=== PATIENT | female | born 1940 | race Caucasian/White ===

== ENCOUNTER 2016-08-08 06:15 | Day surgery (SDC) | payer MEDICARE, OTHER ==
[~2016-08-08 06:15] MED LIST: Gatifloxacin 0.5% Ophth Soln 2.5 ML Bot EYERT SCH; Sodium Chloride 0.9% 5 ML Syringe FLUSH PRN; [UNRECOGNIZED DRUG - OTHER] EYERT SCH
[2016-08-08] MEDS: Cyclopentolate 1% Opth Soln 2 ML Bottle EYERT SCH ×3 (06:43→07:26)
[2016-08-08] MEDS: Phenylephrine 10% Ophth Soln 5 ML Bot EYERT SCH ×3 (06:55→07:36)
[2016-08-08] MEDS ORDERED: Lactated Ringers 1,000 ML IV SCH (07:15)
[2016-08-08] MEDS ORDERED: Balanced Salt Solution Ophth Irrig 15 ML Bottle EYERT ONE (08:36)
[2016-08-08] MEDS ORDERED: Water For Irrigation,Sterile 1,500 ML Container IRR ONE (08:36)
[2016-08-08] MEDS ORDERED: Carbachol 0.01% Intraocular 1.5 ML Vial EYERT ONE (08:37)
[2016-08-08] MEDS ORDERED: EPINEPHrine 1:1000 1 MG/ML SDV ONE (08:37)
[2016-08-08] MEDS ORDERED: Balanced Salt Solution Plus Ophth Irrig 500 ML Bottle IOCULAR ONE (08:37)
[2016-08-08] MEDS ORDERED: Tetracaine 0.5% 2 ML Bottle EYEBOTH ONE (08:37)
[2016-08-08] MEDS ORDERED: Dexamethasone/Neomycin/Polymyxin B Ophth Oint 3.5 GM Tube EYERT ONE (08:38)
[2016-08-08] MEDS ORDERED: Lidocaine 1% 10 ML MDV INJECT ONE (08:39)
[2016-08-08] MEDS ORDERED: Hyaluronate Sodium 1% 0.85 ML Syringe IOCULAR ONE (08:39)
[2016-08-08] MEDS ORDERED: Lidocaine 2% with EPINEPHrine 1:100,000 20 ML MDV INJECT ONE (08:39)
[2016-08-08 09:00] VITALS: BP 129/60
--- NOTE | 2016-08-08 09:39 | PROC ---
DATE OF PROCEDURE: PHYSICIAN: Danilo Gr MD PRE-PROCEDURE DIAGNOSIS: Cataract, right eye. POST-PROCEDURE DIAGNOSIS: Cataract, right eye. PROCEDURE PERFORMED: Phacoemulsification with posterior chamber lens insertion, right eye. FINDINGS: The patient was taken to the operating room where appropriate anesthesia, sedation and monitoring were provided. A retrobulbar block was given on the right side. The eye was massaged and was found to be appropriately soft. The eye and eyelids were then prepped and draped in the usual sterile manner. A lid speculum was placed. A micro sharp blade was used to enter the anterior chamber inside the limbus superior-temporally. Xylocaine was irrigated into the eye at this site. Healon was irrigated into the eye through this site. Then using a 2.85 mm corneal blade an entry was made into the anterior chamber just inside the limbus temporally. Healon was again irrigated into the eye. Then using a cystitome, the anterior capsulorrhexis was created. The lens nucleus was hydrodissected using a 27 gauge cannula and balanced salt solution. The phacoemulsification unit was introduced through the temporal site and the Arun spatula through the superior temporal site. In so doing, the lens nucleus was phacoemulsified. The cortical fragments of the lens were removed using the irrigation aspiration unit. The posterior capsule was polished. Healon was irrigated into the eye. The posterior chamber lens was inserted and rotated into position inside the capsular bag. The Healon was irrigated out of the eye. Miostat was irrigated into the eye and the pupil rounded nicely. A single interrupted 10-0 Nylon suture was placed through the temporal corneal incision site. Balanced salt solution was irrigated into the eye. The wound was tested and found to be tight. Maxitrol ointment was placed into the patient's right eye. The eyelids were closed and an eye patch and sales shield were placed. The patient left the operating room in good condition. /[id number]/MODL
== END 2016-08-08 09:07 | disposition home or self-care (01) ==
LOC: KA.SDS 06:15
PROVIDERS: ATTEND Ophthalmology
DX: H26.9 Unspecified cataract (principal); I10 Essential (primary) hypertension; E03.9 Hypothyroidism, unspecified; E78.00 Pure hypercholesterolemia, unspecified; F32.9 Major depressive disorder, single episode, unspecified; K21.9 Gastro-esophageal reflux disease without esophagitis; F41.9 Anxiety disorder, unspecified; E55.9 Vitamin D deficiency, unspecified; Z90.49 Acquired absence of other specified parts of digestive tract; Z98.890 Other specified postprocedural states; Z79.899 Other long term (current) drug therapy
CPT/HCPCS: 00142; 66984; A9270; C1780; J0171; J7120

== ENCOUNTER 2016-10-16 09:46 | Day surgery (SDC) | payer MEDICARE, OTHER ==
[2016-10-16] MEDS ORDERED: Sodium Chloride 0.9% 5 ML Syringe FLUSH PRN (10:00)
[2016-10-16] MEDS ORDERED: Lactated Ringers 1,000 ML IV SCH (10:00)
[2016-10-16] MEDS ORDERED: ceFAZolin 1 GM Vial ONE ×3 (10:45→12:41)
[2016-10-16] MEDS ORDERED: Propofol 200 MG/20 ML SDV ONE (10:46)
[2016-10-16] MEDS ORDERED: Midazolam 1 MG/ML 2 ML SDV ONE (10:46)
[2016-10-16] MEDS ORDERED: fentaNYL 250 MCG/5 ML SDV ONE (10:46)
[2016-10-16] MEDS ORDERED: Bupivacaine 0.5%/EPINEPHrine 1:200,000 30 ML SDV ONE (11:13)
[2016-10-16] MEDS ORDERED: ePHEDrine 50 MG/ML SDV ONE (11:38)
[2016-10-16] MEDS ORDERED: Lactated Ringers 1,000 ML ONE (11:45)
[2016-10-16] MEDS ORDERED: Rocuronium 50 MG/5 ML Vial IV ONE (12:09)
[2016-10-16] MEDS ORDERED: Glycopyrrolate 0.2 MG/ML 5 ML MDV IV ONE (12:09)
[2016-10-16] MEDS ORDERED: Succinylcholine 200 MG/10 ML MDV IV ONE (12:09)
[2016-10-16] MEDS ORDERED: Neostigmine Methylsulfate 10 MG/10 ML MDV IV ONE (12:09)
[2016-10-16] MEDS ORDERED: Propofol 200 MG/20 ML SDV IV ONE (12:09)
[2016-10-16] MEDS ORDERED: ceFAZolin 1 GM Vial IV ONE (12:09)
[2016-10-16] MEDS ORDERED: Ondansetron 4 MG/2 ML SDV IV ONE (12:09)
[2016-10-16] MEDS ORDERED: fentaNYL 250 MCG/5 ML SDV IV ONE (12:09)
[2016-10-16] MEDS ORDERED: ePHEDrine 50 MG/ML SDV IV ONE (12:09)
[2016-10-16] MEDS ORDERED: Midazolam 1 MG/ML 2 ML SDV IV ONE (12:09)
[2016-10-16] MEDS ORDERED: Bupivacaine 0.5%/EPINEPHrine 1:200,000 30 ML SDV INFILT ONE (12:41)
--- NOTE | 2016-10-16 12:58 | PCM.OPNOTE ---
[id number] abdominal hernia extending from an umbilical hernia with mesh Pre Op Diagnosis: Ventral abdominal hernia Post-Op Diagnosis: As above Primary Surgeon: Rick Mcgee Condition: Good Free Text/Narrative:: Preoperative diagnosis: Ventral abdominal hernia extending into an Umbilical Hernis Postoperative diagnosis: As above Procedure performed: Ventral abdominal herniorrhaphy and placement of Marlex mesh Informed consent was obtained from the patient regarding this procedure. All possible complications were thoroughly discussed including the possibility of infection, recurrence, bleeding, pain, and other unknown complications. The patient decided to proceed. She was taken to the operating room and kept in the supine position. A satisfactory general anesthetic was administered by the hand touch up painter JAVY. her abdomen was thoroughly prepped and draped in the usual fashion. A curvilinear incision was made in the supraumbilical area. This incision was deepened through the subcutaneous tissue until we came upon the hernia. The fascia was very delicate and easily opened. The sac was excised and sent away for histology. The bowel could be easily palpated. The edges of the sac was closed with braided 1 nylon sutures. A Marlex mesh was then cut down to size and sutured to the fascia with great 1 nylon sutures as well. The subcutaneous tissues were irrigated. There were approximated with 3-0 Polysorb and the skin was closed using stainless steel clips. Prior to skin closure, a round INDRA drain was placed into the subcutaneous tissue and brought out through the middle of the incision. This was anchored with 3-0 silk sutures. A sterile pressure dressing was then applied. The patient tolerated the entire procedure very well. There were no operative complications. She was returned to the recovery room in a satisfactory condition. Blood loss was negligible. Sponge needle and instrument count were correct.
[2016-10-16 15:18] VITALS: BP 113/61
== END 2016-10-16 16:00 | disposition home or self-care (01) ==
LOC: KA.SDS 09:46
PROVIDERS: ATTEND Family Medicine
DX: K42.9 Umbilical hernia without obstruction or gangrene (principal); E03.9 Hypothyroidism, unspecified; E78.00 Pure hypercholesterolemia, unspecified; Z79.82 Long term (current) use of aspirin; Z79.899 Other long term (current) drug therapy; Z90.49 Acquired absence of other specified parts of digestive tract
CPT/HCPCS: 49585; J0330; J0690; J2250; J2405; J2704; J2710; J3010; J7120; 00750; 88302; C1781; J3490

== ENCOUNTER 2017-04-12 18:35 | Emergency (ER) | payer MEDICARE, OTHER ==
[2017-04-12 18:48] VITALS: BP 142/78
[2017-04-12] MEDS ORDERED: Phenazopyridine 100 MG Tab PO ONE (19:16)
--- NOTE | 2017-04-12 19:16 | EDM.PDOC ---
ED HPI GENERAL MEDICAL PROBLEM - General Chief Complaint: Genitourinary Problem Stated Complaint: BACK AND SIDE PAIN Time Seen by Provider: 04/12/17 19:00 Source of Information: Reports: Patient History Limitations: Reports: No Limitations - History of Present Illness INITIAL COMMENTS - FREE TEXT/NARRATIVE: 76 YO WF presents to ER complaining of right flank pain which began today around 3pm today. Pt reports dull ache on right side of her back with some urinary frequency and urgency. Pt denies any dysuria, fever/chills, or vomiting , but she states she felt nauseated today. Pt denies any worsening back pain with movement and patient is able to ambulate without difficulty. Onset: Today Onset Date: 04/12/17 Onset Time: 15:00 Duration: Day(s): (1) Location: Reports: Back Quality: Reports: Ache Severity: Mild Improves with: Reports: None Worsens with: Reports: None Associated Symptoms: Reports: No Other Symptoms, Nausea/Vomiting. 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 Right Back Pain Score (Numeric/FACES): 6 - Related Data Allergies Allergy/AdvReac Type Severity Reaction Status Date / Time No Known Drug Allergies Allergy NKDA Verified 10/16/16 10:13 Home Meds: Home Meds Cholecalciferol (Vitamin D3) [Vitamin D3] 2,000 unit PO DAILY 08/28/14 [History] Escitalopram Oxalate [Lexapro] 20 mg PO DAILY 08/28/14 [History] Multivitamin with Minerals [Multiple Vitamin] 1 tab PO DAILY 08/28/14 [History] atorvaSTATin [Lipitor] 20 mg PO DAILY@1600 01/21/16 [History] Aspirin [Halfprin] 81 mg PO WITHBREAKFAST #90 tab.ec 02/15/16 [Rx] Levothyroxine [Synthroid] 100 mcg PO ACBREAKFAST #30 tablet 02/15/16 [Rx] Lisinopril 10 mg PO DAILY #30 tablet 02/15/16 [Rx] ALPRAZolam [Alprazolam] 0.25 mg PO Q6H PRN 03/11/16 [History] Pantoprazole [ProTONIX] 40 mg PO DAILY 03/11/16 [History] Acetaminophen [Tylenol] 650 mg PO QID PRN 04/06/16 [History] Cephalexin [Keflex] 500 mg PO Q6HR #40 cap 04/12/17 [Rx] Cranberry Conc/Ascorbic Acid [Cranberry Concentrate Softgel] 1 each PO DAILY 02/18 [History] Phenazopyridine [Pyridium] 100 mg PO TID #6 tablet 04/12/17 [Rx] Past Medical History HEENT History: Reports: Cataract, Impaired Vision Cardiovascular History: Reports: Blood Clots/VTE/DVT, High Cholesterol, Hypertension Respiratory History: Reports: PE Gastrointestinal History: Reports: GERD Genitourinary History: Reports: Pyelonephritis 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: Musculoskeletal History: Reports: Arthritis, Fracture, Other (See Below) Other Musculoskeletal History: Pelvic fracture 01/17 Psychiatric History: Reports: Anxiety Endocrine/Metabolic History: Reports: Hypoparathyroidism, Obesity/BMI 30+ Hematologic History: Reports: Blood Transfusion(s) - Infectious Disease History Infectious Disease History: Reports: None - Past Surgical History Head Surgeries/Procedures: Reports: None HEENT Surgical History: Reports: Cataract Surgery Cardiovascular Surgical History: Reports: None Respiratory Surgical History: Reports: None GI Surgical History: Reports: Cholecystectomy, Colonoscopy Female Surgical History: Reports: None Endocrine Surgical History: Reports: None Musculoskeletal Surgical History: Reports: Hip Replacement, Knee Replacement, Other (See Below) Other Musculoskeletal Surgeries/Procedures:: left total hip replacement 2002, right knee replacement 2010 Social & Family History - Family History Family Medical History: Noncontributory HEENT: Reports: None Cardiac: Reports: None Respiratory: Reports: None GI: Reports: None : Reports: None OBGYN: Reports: None Musculoskeletal: Reports: None Neurological: Reports: None Psychiatric: Reports: None Endocrine/Metabolic: Reports: None Hematologic: Reports: None Immunologic: Reports: None Oncologic: Reports: Colon - Tobacco Use Smoking Status *Q: Never Smoker Second Hand Smoke Exposure: No - Caffeine Use Caffeine Use: Reports: Coffee, Soda - Alcohol Use Days Per Week of Alcohol Use: 0 - Recreational Drug Use Recreational Drug Use: No ED ROS GENERAL - Review of Systems Review Of Systems: See Below Constitutional: Reports: No Symptoms HEENT: Reports: No Symptoms Respiratory: Reports: No Symptoms Cardiovascular: Reports: No Symptoms Endocrine: Reports: No Symptoms GI/Abdominal: Reports: Nausea. Denies: Abdominal Pain, Vomiting : Reports: Flank Pain, Frequency, Urgency Musculoskeletal: Reports: No Symptoms Skin: Reports: No Symptoms Neurological: Reports: No Symptoms Psychiatric: Reports: No Symptoms Hematologic/Lymphatic: Reports: No Symptoms Immunologic: Reports: No Symptoms ED EXAM, RENAL/ - Physical Exam Exam: See Below Exam Limited By: No Limitations General Appearance: Alert, WD/WN, No Apparent Distress Nose: Normal Inspection, Normal Mucosa, No Blood Throat/Mouth: Normal Inspection, Normal Lips, Normal Teeth, Normal Gums, Normal Oropharynx, Normal Voice, No Airway Compromise Head: Atraumatic, Normocephalic Neck: Normal Inspection, Supple, Non-Tender, Full Range of Motion Respiratory/Chest: No Respiratory Distress, Lungs Clear, Normal Breath Sounds, No Accessory Muscle Use, Chest Non-Tender Cardiovascular: Normal Peripheral Pulses, Regular Rate, Rhythm, No Edema, No Gallop, No JVD, No Murmur, No Rub GI/Abdominal: Normal Bowel Sounds, Soft, Non-Tender, No Organomegaly, No Distention, No Abnormal Bruit, No Mass Back Exam: Normal Inspection, Full Range of Motion, NT Extremities: Normal Inspection, Normal Range of Motion, Non-Tender, Normal Capillary Refill, No Pedal Edema Neurological: Alert, Oriented, CN II-XII Intact, Normal Cognition, Normal Gait, Normal Reflexes, No Motor/Sensory Deficits Psychiatric: Normal Affect, Normal Mood Skin Exam: Warm, Dry, Intact, Normal Color, No Rash Lymphatic: No Adenopathy Course - Vital Signs Last Recorded V/S: Last Vital Signs Temp 36.5 C 04/12/17 18:43 Pulse 97 04/12/17 18:43 Resp 20 04/12/17 18:43 BP 142/78 H 04/12/17 18:43 Pulse Ox 94 L 04/12/17 18:43 - Orders/Labs/Meds Labs: Laboratory Tests 04/12/17 Range/Units 18:35 Specimen Type Urinvoid Urine Color Yellow (YELLOW) Urine Appearance Slightly cloudy H (CLEAR) Urine pH 6.0 (5.0-9.0) Ur Specific [place] 1.010 (1.005-1.030) Urine Protein Negative (NEGATIVE) mg/dL Urine Glucose (UA) Negative (NEGATIVE) mg/dL Urine Ketones Negative (NEGATIVE) mg/dL Urine Occult Blood Moderate H (NEGATIVE) Urine Nitrite Negative (NEGATIVE) Urine Bilirubin Negative (NEGATIVE) Urine Urobilinogen 0.2 (0.2-1.0) E.U./dL Ur Leukocyte Esterase Moderate H (NEGATIVE) Urine RBC 5-10 H /HPF Urine WBC 30-40 H /HPF Ur Epithelial Cells Few /LPF Urine Bacteria Few (NONE TO FEW) /HPF Meds: Medications Discontinued Medications Generic Name Dose Route Start Last Admin Trade Name Freq PRN Reason Stop Dose Admin Ceftriaxone Sodium 1 gm 04/12/17 19:17 Rocephin IM 04/12/17 19:18 ONETIME ONE Phenazopyridine HCl 100 mg 04/12/17 19:16 Pyridium PO 04/12/17 19:17 ONETIME ONE Departure - Departure Time of Disposition: 19:28 Disposition: Home, Self-Care 01 Condition: Good Clinical Impression: UTI, Urinary tract infectious disease UTI (urinary tract infection) Qualifiers: Urinary tract infection type: site unspecified Hematuria presence: without hematuria Qualified Code(s): N39.0 - Urinary tract infection, site not specified - Discharge Information Prescriptions: Cephalexin [Keflex] 500 mg PO Q6HR #40 cap Phenazopyridine [Pyridium] 100 mg PO TID #6 tablet Instructions: Urinary Tract Infection, Adult, [id number], Back Pain, Adult, [id number] Referrals: Rick Mcgee MD [Primary Care Provider] - Forms: ED Department Discharge - Assessment/Plan Assessment:: 1. right flank pain 2. urinary tract infection Plan: 1. discharge home 2. keflex 500mg PO Q6 x 10 days 3. pyridium for pain 4. return to ER for worsening symptoms- fever, vomiting, confusion or worsening pain 5. follow up in clinic for recheck next 48 hours
[2017-04-12] MEDS ORDERED: cefTRIAXone 1 GM Vial IM ONE (19:17)
[2017-04-12] MEDS ORDERED: Lidocaine 1% 20 ML MDV ONE (19:21)
== END 2017-04-12 20:00 | disposition home or self-care (01) ==
LOC: KA.ED 18:35
DX: N39.0 Urinary tract infection, site not specified (principal); I10 Essential (primary) hypertension; E78.00 Pure hypercholesterolemia, unspecified; K21.9 Gastro-esophageal reflux disease without esophagitis; F41.9 Anxiety disorder, unspecified; Z79.82 Long term (current) use of aspirin; Z79.899 Other long term (current) drug therapy
CPT/HCPCS: 81001; 96372; 99284; A9270; J0696

== ENCOUNTER 2017-04-12 23:12 | Inpatient (IN) | payer MEDICARE, OTHER ==
[2017-04-12] MEDS ORDERED: Ondansetron 4 MG/2 ML SDV IVPUSH ONE (23:34)
[2017-04-12] MEDS ORDERED: Sodium Chloride 0.9% 1,000 ML IV ONE (23:34)
[2017-04-12] MEDS ORDERED: Ondansetron 4 MG/2 ML SDV ONE (23:36)
--- NOTE | 2017-04-12 23:41 | EDM.PDOC ---
ED HPI GENERAL MEDICAL PROBLEM - General Chief Complaint: Genitourinary Problem Stated Complaint: NAUSEA, WEAKNESS Time Seen by Provider: 04/12/17 23:25 Source of Information: Reports: Patient History Limitations: Reports: No Limitations - History of Present Illness INITIAL COMMENTS - FREE TEXT/NARRATIVE: 76 YO WF presents to ER by EMS with intractable vomiting. Pt was seen in ER earlier tonight with right flank pain and urinary urgency. Pt at that time complained of nausea but tolerated PO fluids in ER and was discharged with UTI after receiving rocephin for infection. Pt went home and began vomiting prompting EMS transfer. Pt denies chest pain, shortness of breath or abdominal pain. Pt states she still feels nauseated. Onset: Today Onset Date: 04/12/17 Onset Time: 15:00 Duration: Day(s): (1) Severity: Moderate Improves with: Reports: None Worsens with: Reports: None Associated Symptoms: Reports: No Other Symptoms, Loss of Appetite, Nausea/ Vomiting, Weakness. Denies: Chest Pain, Diaphoresis, Fever/Chills, Shortness of Breath, Syncope - Related Data Allergies Allergy/AdvReac Type Severity Reaction Status Date / Time No Known Drug Allergies Allergy NKDA Verified 04/12/17 23:59 Home Meds: Home Meds Cholecalciferol (Vitamin D3) [Vitamin D3] 2,000 unit PO DAILY 08/28/14 [History] Escitalopram Oxalate [Lexapro] 20 mg PO DAILY 08/28/14 [History] Multivitamin with Minerals [Multiple Vitamin] 1 tab PO DAILY 08/28/14 [History] atorvaSTATin [Lipitor] 20 mg PO DAILY@1600 01/21/16 [History] Aspirin [Halfprin] 81 mg PO WITHBREAKFAST #90 tab.ec 02/15/16 [Rx] Levothyroxine [Synthroid] 100 mcg PO ACBREAKFAST #30 tablet 02/15/16 [Rx] Lisinopril 10 mg PO DAILY #30 tablet 02/15/16 [Rx] ALPRAZolam [Alprazolam] 0.25 mg PO Q6H PRN 03/11/16 [History] Pantoprazole [ProTONIX] 40 mg PO DAILY 03/11/16 [History] Acetaminophen [Tylenol] 650 mg PO QID PRN 04/06/16 [History] Cephalexin [Keflex] 500 mg PO Q6HR #40 cap 04/12/17 [Rx] Cranberry Conc/Ascorbic Acid [Cranberry Concentrate Softgel] 1 each PO DAILY 02/18 [History] Phenazopyridine [Pyridium] 100 mg PO TID #6 tablet 04/12/17 [Rx] Past Medical History HEENT History: Reports: Cataract, Impaired Vision Cardiovascular History: Reports: Blood Clots/VTE/DVT, High Cholesterol, Hypertension Respiratory History: Reports: PE Gastrointestinal History: Reports: GERD Genitourinary History: Reports: Pyelonephritis 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: Musculoskeletal History: Reports: Arthritis, Fracture, Other (See Below) Other Musculoskeletal History: Pelvic fracture 01/17 Psychiatric History: Reports: Anxiety Endocrine/Metabolic History: Reports: Hypoparathyroidism, Obesity/BMI 30+ Hematologic History: Reports: Blood Transfusion(s) - Infectious Disease History Infectious Disease History: Reports: None - Past Surgical History Head Surgeries/Procedures: Reports: None HEENT Surgical History: Reports: Cataract Surgery Cardiovascular Surgical History: Reports: None Respiratory Surgical History: Reports: None GI Surgical History: Reports: Cholecystectomy, Colonoscopy Female Surgical History: Reports: None Endocrine Surgical History: Reports: None Musculoskeletal Surgical History: Reports: Hip Replacement, Knee Replacement, Other (See Below) Other Musculoskeletal Surgeries/Procedures:: left total hip replacement 2002, right knee replacement 2010 Social & Family History - Family History Family Medical History: Noncontributory HEENT: Reports: None Cardiac: Reports: None Respiratory: Reports: None GI: Reports: None : Reports: None OBGYN: Reports: None Musculoskeletal: Reports: None Neurological: Reports: None Psychiatric: Reports: None Endocrine/Metabolic: Reports: None Hematologic: Reports: None Immunologic: Reports: None Oncologic: Reports: Colon - Tobacco Use Smoking Status *Q: Never Smoker Second Hand Smoke Exposure: No - Caffeine Use Caffeine Use: Reports: Coffee, Soda - Alcohol Use Days Per Week of Alcohol Use: 0 - Recreational Drug Use Recreational Drug Use: No ED ROS GENERAL - Review of Systems Review Of Systems: See Below Constitutional: Reports: No Symptoms HEENT: Reports: No Symptoms Respiratory: Reports: No Symptoms Cardiovascular: Reports: No Symptoms Endocrine: Reports: No Symptoms GI/Abdominal: Reports: Nausea, Vomiting. Denies: Abdominal Pain, Black Stool, Bloody Stool, Constipation, Diarrhea, Distension, Hematemesis, Hematochezia : Reports: Frequency, Urgency Musculoskeletal: Reports: Back Pain Skin: Reports: No Symptoms Neurological: Reports: No Symptoms Psychiatric: Reports: No Symptoms Hematologic/Lymphatic: Reports: No Symptoms Immunologic: Reports: No Symptoms ED EXAM, RENAL/ - Physical Exam Exam: See Below Exam Limited By: No Limitations General Appearance: Alert, WD/WN, No Apparent Distress Throat/Mouth: Normal Inspection, Normal Lips, Normal Teeth, Normal Gums, Normal Oropharynx, Normal Voice, No Airway Compromise Head: Atraumatic, Normocephalic Neck: Normal Inspection, Supple, Non-Tender, Full Range of Motion Respiratory/Chest: No Respiratory Distress, Lungs Clear, Normal Breath Sounds, No Accessory Muscle Use, Chest Non-Tender Cardiovascular: Normal Peripheral Pulses, Regular Rate, Rhythm, No Edema, No Gallop, No JVD, No Murmur, No Rub GI/Abdominal: Normal Bowel Sounds, Soft, Non-Tender, No Organomegaly, No Distention, No Abnormal Bruit, No Mass Back Exam: CVA Tenderness (R) Extremities: Normal Inspection, Normal Range of Motion, Non-Tender, Normal Capillary Refill, No Pedal Edema Neurological: Alert, Oriented, CN II-XII Intact, Normal Cognition, Normal Gait, Normal Reflexes, No Motor/Sensory Deficits Psychiatric: Normal Affect, Normal Mood Skin Exam: Warm, Dry, Intact, Normal Color, No Rash Lymphatic: No Adenopathy Course - Vital Signs Last Recorded V/S: Last Vital Signs Temp 36.4 C 04/12/17 23:30 Pulse 74 04/12/17 23:30 Resp 18 04/12/17 23:30 BP 128/61 04/12/17 23:30 Pulse Ox 93 L 04/12/17 23:30 - Orders/Labs/Meds Orders: Active Orders 24 hr Category Date Time Status CULTURE URINE [RM] Stat Lab 04/12/17 23:34 Uncollected Metoclopramide [Reglan] Med 04/13/17 00:02 Once 10 mg IVPUSH ONETIME ONE Sodium Chloride 0.9% @ 999 MLS/HR (1000ml) Med 04/12/17 23:34 Ordered Sodium Chloride 0.9% [Normal Saline] 1,000 ml IV .BOLUS Medication Orders Sodium Chloride (Normal Saline) 1,000 mls @ 999 mls/hr IV .BOLUS ONE Stop: 04/13/17 00:34 Last Admin: 04/12/17 23:30 Dose: 999 mls/hr Labs: Laboratory Tests 04/12/17 04/12/17 Range/Units 23:34 23:34 WBC 18.7 H (5.0-10.0) 10^3/uL RBC 4.44 (3.80-5.50) 10^6/uL Hgb 12.7 (12.0-16.0) g/dL Hct 39.3 (37.0-47.0) % MCV 88.6 (82.0-92.0) fL MCH 28.7 (27.0-31.0) pg MCHC 32.4 (32.0-36.0) g/dL RDW 13.0 (11.5-14.5) % Plt Count 260 (150-300) 10^3/uL MPV 8.3 (7.4-10.4) fL Neut % (Auto) 83.5 H (50.0-70.0) % Lymph % (Auto) 10.6 L (20.0-40.0) % [place] % (Auto) 5.3 (2.0-8.0) % Eos % (Auto) 0.3 L (1.0-3.0) % Baso % (Auto) 0.3 (0.0-1.0) % Neut # (Auto) 15.5 H (2.5-7.0) 10^3/uL Lymph # (Auto) 2.0 (1.0-4.0) 10^3/uL [place] # (Auto) 1.0 H (0.1-0.8) 10^3/uL Eos # (Auto) 0.1 (0.1-0.3) 10^3/uL Baso # (Auto) 0.1 (0.0-0.1) 10^3/uL Sodium 137 (136-145) mmol/L Potassium 4.0 (3.3-5.3) mmol/L Chloride 100 (98-115) mmol/L Carbon Dioxide 26.5 (21.0-32.0) mmol/L BUN 10 (6-25) mg/dL Creatinine 0.90 (0.51-1.17) mg/dL Est Cr Clr Drug Dosing TNP Estimated GFR (MDRD) > 60 mL/min Glucose 203 H (70-110) mg/dL Calcium 9.6 (8.7-10.3) mg/dL Total Bilirubin 0.9 (0.2-1.0) mg/dL AST 21 (15-37) U/L ALT 23 (12-78) U/L Alkaline Phosphatase 76 (46-116) IU/L Total Protein 7.5 (6.4-8.2) g/dL Albumin 3.73 (3.00-4.80) g/dL Lipase 235 (73-393) U/L Meds: Medications Generic Name Dose Route Start Last Admin Trade Name Freq PRN Reason Stop Dose Admin Sodium Chloride 1,000 mls @ 999 mls/hr 04/12/17 23:34 04/12/17 23:30 Normal Saline IV 04/13/17 00:34 999 mls/hr .BOLUS ONE Administration Discontinued Medications Generic Name Dose Route Start Last Admin Trade Name Freq PRN Reason Stop Dose Admin Ondansetron HCl 4 mg 04/12/17 23:34 04/12/17 23:42 Zofran IVPUSH 04/12/17 23:35 4 mg ONETIME ONE Administration Ondansetron HCl Confirm 04/12/17 23:36 04/12/17 23:44 Zofran Administered 04/12/17 23:37 Not Given Dose 4 mg .ROUTE .STK-MED ONE Departure - Departure Time of Disposition: 00:11 Disposition: Admitted As Inpatient 65 Condition: Fair Clinical Impression: Pyelonephritis - Discharge Information Referrals: Rick Mcgee MD [Primary Care Provider] - Forms: ED Department Discharge - My Orders Last 24 Hours: My Active Orders 04/12/17 23:34 CULTURE URINE [RM] Stat Sodium Chloride 0.9% @ 999 MLS/HR (1000ml) Sodium Chloride 0.9% [Normal Saline] 1,000 ml IV .BOLUS 04/13/17 00:02 Metoclopramide [Reglan] 10 mg IVPUSH ONETIME ONE - Assessment/Plan Last 24 Hours: My Active Orders 04/12/17 23:34 CULTURE URINE [RM] Stat Sodium Chloride 0.9% @ 999 MLS/HR (1000ml) Sodium Chloride 0.9% [Normal Saline] 1,000 ml IV .BOLUS 04/13/17 00:02 Metoclopramide [Reglan] 10 mg IVPUSH ONETIME ONE Assessment:: 1. vomiting 2. early pyelonephritis Plan: 1. admit to hospital- pyelonephritis- Maddie Mcgee MD 2. rocephin 1g IV QD 3. zofran 4mg IV Q8 PRN vomiting 4. IVF
[2017-04-12 23:53] LABS: CHLORIDE,CL 100 mmol/L (98-115); SODIUM,NA 137 mmol/L (136-145)
[2017-04-13] MEDS ORDERED: Metoclopramide 10 MG/2 ML SDV IVPUSH ONE ×2 (00:02→04:06)
[2017-04-13] MEDS ORDERED: Sodium Chloride 0.9% 1,000 ML IV SCH (00:15)
[2017-04-13] MEDS ORDERED: Ketorolac 30 MG/ML SDV IVPUSH ONE (00:15)
[2017-04-13] MEDS: Ondansetron 4 MG/2 ML SDV IV PRN ×2 (02:14→17:27)
[2017-04-13] MEDS ORDERED: Pantoprazole 40 MG Vial IVPUSH ONE (04:08)
[2017-04-13] MEDS ORDERED: Sodium Chloride 0.9% 50 ML SDV FLUSH SCH (04:30)
[2017-04-13] MEDS: Iopamidol 612 MG/ML 75 ML Bottle IV ONE ×2 (06:41→07:48)
[2017-04-13 07:38] LABS: CHLORIDE,CL 103 mmol/L (98-115); SODIUM,NA 137 mmol/L (136-145)
[2017-04-13] MEDS ORDERED: GI Cocktail 45 ML BOTTLE PO SCH (09:00)
[2017-04-13] MEDS ORDERED: Acetaminophen 325 MG Tab PO PRN (09:09)
[2017-04-13] MEDS ORDERED: Ketorolac 30 MG/ML SDV IVPUSH PRN ×2 (09:11→10:42)
[2017-04-13] MEDS ORDERED: cefTRIAXone 1 GM in Sodium Chloride 0.9% 50 ML IV SCH (10:00)
--- NOTE | 2017-04-13 12:24 | HP ---
PATIENT PROFILE: The patient is a 76-year-old patient who lives in [place], [place]. HISTORY OF PRESENT ILLNESS: This 76-year-old white female who presented to the emergency room by EMS because of complaints of severe vomiting. The patient was seen in the emergency room earlier last night with right flank and urinary tract urgency. She also complained of some nausea, but did respond to p.o. fluids in the ER and was discharged after having received Rocephin for infection. The patient went home and promptly started vomiting. She denied having any chest pain, shortness of breath, or significant abdominal pain. She still feels nauseated. She was therefore admitted to the hospital after returning to the emergency room for the second time. PAST MEDICAL HISTORY: Head/ENT: Reports cataracts with slight impaired vision. Cardiovascular history: She has history of DVT and blood clots. Currently, she is not on any anticoagulants. Cardiovascular history is also positive for high cholesterol and hypertension. Respiratory system: Patient has had a history of PE. GI history: Reports GERD. Genitourinary system: See present history and possible pyelonephritis. 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 Intact uterus. Musculoskeletal history: Complains of arthritis and old fractured hip. She also had a pelvic fracture on 01/17. Psychiatric history: Reports some anxiety. Endocrine/metabolic history: Reports hypothyroidism, obesity with a BMI of 30+. Hematological history: Reports previous blood transfusions. Infectious disease history: Negative. PAST SURGICAL HISTORY: Includes head and neck surgery: None. Eyes/ENT: Reports cataract surgery. Has a previous history of cholecystectomy, colonoscopy. Has had left total hip replacement in 2002 and right knee replacement in 2010. SOCIAL AND FAMILY HISTORY: Family history is noncontributory. Tobacco use: Patient never smoked before. Exposure to secondhand smoke: Never. Caffeine: Reports coffee and soda. Alcohol: Does not use alcohol. No recreational drug use. REVIEW OF SYSTEMS: CONSTITUTIONAL: No complaints. HEAD/ENT: No complaints. RESPIRATORY: No complaints except for slight wheezing history. Occasional cough but no expectoration. CARDIOVASCULAR: Nil. No complaints of chest pain or dyspnea. ENDOCRINE: No complaints. GI: See present history includes nausea, vomiting, and mild abdominal pain. No diarrhea. No constipation, hematemesis, or hematochezia. MUSCULOSKELETAL: Reports back pain due to arthritis. SKIN: No complaints. NEUROLOGICAL: No complaints. PSYCHIATRIC: No complaints. HEMATOLOGICAL/LYMPHATIC: No complaints. IMMUNOLOGICAL: No complaints. PHYSICAL EXAMINATION: GENERAL: Reveals a very pleasant, elderly patient, in no immediate distress, appears to be slightly pale. VITAL SIGNS: Temperature is 36.4 degrees centigrade, pulse 76, respirations 18, blood pressure is 130/60, oximetry is 93%. HEAD: Negative. EYES: Arcus senilis. EARS, NOSE, AND THROAT: Normal. NECK: Supple. Full range of motion. No midline swellings. Trachea midline. Lymph nodes are not enlarged. LUNGS: A few crackles in the right base and a few rales in the left base also. Couple of wheezes are also heard at the bases. HEART: Regular rhythm. No thrills. No murmurs. BREASTS: Soft without any masses. ABDOMEN: Slightly distended. Distention appears to be mostly gaseous. No abdominal tenderness is noted. No rebound tenderness. Normal bowel sounds. No organomegaly. Previous history of cholecystectomy noted. BACK: Has mild right CVA tenderness. EXTREMITIES: Normal. NEUROLOGIC: No deficit noted. Cranial nerves normal. Peripheral nerves normal. PSYCHIATRIC: Normal. SKIN: Normal. LYMPHATIC: Normal. LABORATORY DATA: The patient's hemoglobin is 11.9, hematocrit is 36.5, white count of 15.8 this morning. Previously, it was 18,000. Electrolytes were normal. BUN and creatinine were normal. Platelet count was 259,000. The patient had a CT scan of the abdomen which reveals no acute problems. 1. "There is infiltration of the peripancreatic fat around the head and uncinate process with mild thickening of the adjacent duodenum." Question pancreatitis. Serum lipase was normal. 2. Diverticulosis. 3. Mild prominence of the interlobular septa in the lung bases with bronchial thickening noted and ground-glass opacities. Trace bilateral pleural effusions. FINAL DIAGNOSES: 1. Possible urinary tract infection. 2. Severe nausea, vomiting, exact etiology is not known. May be due to early pyelonephritis. 3. Mild bases in the lungs. This may be from old scar tissue. I do not think there is anything acute at this time. 4. Status post cholecystectomy. 5. Status post left knee replacement and right knee arthroplasty. 6. Status post colonoscopy. 7. Status post cataract surgery. 8. Past history of pulmonary embolism, deep vein thrombosis, hypercholesteremia, hypertension, arthritis, pelvic fracture, previous history of hypothyroidism, history of obesity, and history of GERD. PLAN: Plan will be to treat her symptomatic with IV fluids and Zofran and antinausea medications. We will also try GI cocktail for her. We will also use PPIs. We will keep a close eye on her. She might need to have an upper GI endoscopy for further delineation of the suspicious finding of the duodenum noted on the CAT scan. /[id number]/MODL
[2017-04-13] MEDS: Albuterol/Ipratropium 3.0-0.5 MG/3 ML Neb Soln NEB SCH ×2 (12:51→20:03)
[2017-04-13] MEDS: Sodium Chloride 0.9% 5 ML Syringe FLUSH PRN (17:28)
[2017-04-13] MEDS ORDERED: cefTRIAXone 1 GM Vial IVPUSH SCH (21:00)
[2017-04-13] MEDS: GI Cocktail 45 ML BOTTLE PO PRN (21:19)
[2017-04-14] MEDS: Albuterol/Ipratropium 3.0-0.5 MG/3 ML Neb Soln NEB SCH ×3 (05:41→21:21)
[2017-04-14] MEDS: Levothyroxine 100 MCG Tab PO SCH (07:41)
[2017-04-14] MEDS: GI Cocktail 45 ML BOTTLE PO PRN (09:45)
[2017-04-14] MEDS: ALPRAZolam 0.25 MG Tab PO PRN ×3 (09:47→21:25)
--- NOTE | 2017-04-14 11:38 | PCM.PN ---
- General Info Date of Service: 04/14/17 Admission Dx/Problem (Free Text): 76 yo pt was admitted to the hospital through ER on 04/13 with complaints of severe vomiting. She had been seen in the ER earlier 04/12 with complaints of right flank and urinary tract urgency, nausea. This responded to PO fluids and she was discharged after IV Rocephin. Pt went home and immediately started vomiting. She was admitted to acute bed with possible UTI, severe nausea and vomiting with question of possible pyelonephritis. CT of abdomen showed fibrotic changes in lung bases with bronchial thickening noted and ground-glass opacities. Trace bilateral pleural effusions. "Infiltration of the peripancreatic fat around the head and uncinate process with mild thickening of the adjacent duodenum" Question early pancreatitis. Serum lipase was normal. She is being treated for pyelonephritis with rocephin. Her WBC was elevated at 15.3 with left shift this morning. This is essentially unchanged from WBC of 15.8 yesterday. She had wheezing yesterday with decreased O2 sats on room air yesterday and was started on O2 at 2 liters, Incentive Spirometry q hr WA and DuoNebs tid. O2 sats are at 91-92% on O2 at 2 liters today. Pt continues with nausea. She had an emesis today and was given a GI cocktail and zofran. She reports whenever she feels anxious she gets nausea and vomits. This has been worsened since her 5 months ago. She was given Xanax. Functional Status: Reports: Pain Controlled (She continues with right flank pain ) - Review of Systems General: Reports: Weakness Pulmonary: Reports: Shortness of Breath, Wheezing Cardiovascular: Reports: No Symptoms Gastrointestinal: Reports: Nausea, Vomiting, Other (pronounced when she is anxious per pt report. No BM for 2 days) Genitourinary: Reports: No Symptoms Musculoskeletal: Reports: Other (right flank pain) Skin: Reports: No Symptoms Neurological: Reports: No Symptoms - Patient Data Vitals - Most Recent: Last Vital Signs Temp 98.3 F 04/14/17 06:35 Pulse 84 04/14/17 06:35 Resp 18 04/14/17 06:35 BP 118/68 04/14/17 06:35 Pulse Ox 91 L 04/14/17 06:35 Weight - Most Recent: 178 lb 7 oz I&O - Last 24 Hours: Intake & Output 04/13/17 04/14/17 04/14/17 22:59 06:59 14:59 Intake Total 540 0 Output Total 240 300 200 Balance 300 -300 -200 Lab Results Last 24 Hours: Laboratory Results - last 24 hr 04/14/17 Range/Units 07:05 WBC 15.3 H (5.0-10.0) 10^3/uL RBC 3.76 L (3.80-5.50) 10^6/uL Hgb 10.8 L (12.0-16.0) g/dL Hct 33.1 L (37.0-47.0) % MCV 88.1 (82.0-92.0) fL MCH 28.7 (27.0-31.0) pg MCHC 32.6 (32.0-36.0) g/dL RDW 12.8 (11.5-14.5) % Plt Count 233 (150-300) 10^3/uL MPV 7.8 (7.4-10.4) fL Neut % (Auto) 75.9 H (50.0-70.0) % Lymph % (Auto) 19.2 L (20.0-40.0) % [place] % (Auto) 3.9 (2.0-8.0) % Eos % (Auto) 0.2 L (1.0-3.0) % Baso % (Auto) 0.8 (0.0-1.0) % Neut # (Auto) 11.7 H (2.5-7.0) 10^3/uL Lymph # (Auto) 2.9 (1.0-4.0) 10^3/uL [place] # (Auto) 0.6 (0.1-0.8) 10^3/uL Eos # (Auto) 0.0 L (0.1-0.3) 10^3/uL Baso # (Auto) 0.1 (0.0-0.1) 10^3/uL Med Orders - Current: Current Medications Acetaminophen (Tylenol) 650 mg PO QID PRN PRN Reason: Pain Last Admin: 04/13/17 17:26 Dose: 650 mg Al Hydroxide/Mg Hydroxide (Gi Cocktail) 45 ml PO TID PRN PRN Reason: Nausea Last Admin: 04/14/17 09:45 Dose: 45 ml Albuterol/Ipratropium (Duoneb 3.0-0.5 Mg/3 Ml) 3 ml NEB Q8HRRT [facility] Last Admin: 04/14/17 05:41 Dose: 3 ml Alprazolam (Xanax) 0.25 mg PO Q6H PRN PRN Reason: Anxiety Last Admin: 04/14/17 09:47 Dose: 0.25 mg Ceftriaxone Sodium (Rocephin) 1 gm IVPUSH Q24H [facility] Last Admin: 04/13/17 20:03 Dose: 1 gm Ketorolac Tromethamine (Toradol) 15 mg IVPUSH Q8H PRN PRN Reason: Pain Stop: 04/18/17 10:43 Last Admin: 04/13/17 21:26 Dose: 15 mg Levothyroxine Sodium (Synthroid) 100 mcg PO ACBREAKFAST [facility] Last Admin: 04/14/17 07:41 Dose: 100 mcg Ondansetron HCl (Zofran) 4 mg IV Q6H PRN PRN Reason: Nausea/Vomiting Last Admin: 04/13/17 17:27 Dose: 4 mg Sodium Chloride (Syrex Flush) 5 ml FLUSH Q8HR PRN PRN Reason: Keep Vein Open Last Admin: 04/13/17 17:28 Dose: 5 ml Sodium Chloride (Normal Saline) 50 ml FLUSH ASDIRECTED [facility] Last Admin: 04/13/17 07:49 Dose: 50 ml Discontinued Medications Al Hydroxide/Mg Hydroxide (Gi Cocktail) 45 ml PO TID [facility] Last Admin: 04/13/17 08:30 Dose: Not Given Sodium Chloride (Normal Saline) 1,000 mls @ 999 mls/hr IV .BOLUS ONE Stop: 04/13/17 00:34 Last Admin: 04/12/17 23:30 Dose: 999 mls/hr Sodium Chloride (Normal Saline) 1,000 mls @ 100 mls/hr IV ASDIRECTED [facility] Last Admin: 04/13/17 00:49 Dose: 100 mls/hr Ceftriaxone Sodium 1 gm/ (Sodium Chloride) 50 mls @ 200 mls/hr IV Q24H [facility] Last Admin: 04/13/17 10:44 Dose: Not Given Iopamidol (Isovue-300 (61%)) 75 ml IV ONETIME ONE Stop: 04/13/17 04:31 Last Admin: 04/13/17 07:48 Dose: 75 ml Ketorolac Tromethamine (Toradol) 30 mg IVPUSH ONETIME ONE Stop: 04/13/17 00:16 Last Admin: 04/13/17 00:21 Dose: 30 mg Ketorolac Tromethamine (Toradol) 30 mg IVPUSH Q8H PRN PRN Reason: Abdominal Pain Stop: 04/18/17 09:12 Metoclopramide HCl (Reglan) 10 mg IVPUSH ONETIME ONE Stop: 04/13/17 00:03 Last Admin: 04/13/17 00:06 Dose: 10 mg Metoclopramide HCl (Reglan) 10 mg IVPUSH ONETIME ONE Stop: 04/13/17 04:07 Last Admin: 04/13/17 04:22 Dose: 10 mg Ondansetron HCl (Zofran) 4 mg IVPUSH ONETIME ONE Stop: 04/12/17 23:35 Last Admin: 04/12/17 23:42 Dose: 4 mg Ondansetron HCl (Zofran) Confirm Administered Dose 4 mg .ROUTE .STK-MED ONE Stop: 04/12/17 23:37 Last Admin: 04/12/17 23:44 Dose: Not Given Pantoprazole Sodium (Protonix Iv) 40 mg IVPUSH ONETIME ONE Stop: 04/13/17 04:09 Last Admin: 04/13/17 04:22 Dose: 40 mg - Exam Quality Assessment: Supplemental Oxygen (O2 Sats 91-92% on O2) General: Alert, Oriented, Cooperative Lungs: Clear to Auscultation, Decreased Breath Sounds, Other (no wheezing or rales/rhonchi today) Cardiovascular: Regular Rate, Regular Rhythm GI/Abdominal Exam: Non-Tender, Other (firm. Vomited this morning) Back Exam: CVA Tenderness (R) Extremities: Normal Inspection (no pedal edema) Skin: Warm, Dry, Intact Psy/Mental Status: Alert, Other (Anxious appearing. Clenching and unclenching hands frequently) - Problem List Review Problem List Initiated/Reviewed/Updated: Yes - Assessment Assessment:: 76 yo pt was admitted to the hospital through ER on 04/13 with complaints of severe vomiting. She had been seen in the ER earlier 04/12 with complaints of right flank and urinary tract urgency, nausea. This responded to PO fluids and she was discharged after IV Rocephin. Pt went home and immediately started vomiting. She was admitted to acute bed with possible UTI, severe nausea and vomiting with question of possible pyelonephritis. CT of abdomen showed fibrotic changes in lung bases with bronchial thickening noted and ground-glass opacities. Trace bilateral pleural effusions. "Infiltration of the peripancreatic fat around the head and uncinate process with mild thickening of the adjacent duodenum" Question early pancreatitis. Serum lipase was normal. She had wheezing yesterday with decreased O2 sats on room air yesterday and was started on O2 at 2 liters, Incentive Spirometry q hr WA and DuoNebs tid. O2 sats are at 91-92% on O2 at 2 liters today. Pt continues with nausea. She had an emesis today and was given a GI cocktail and zofran. She reports whenever she feels anxious she gets nausea and vomits. This has been worsened since her 5 months ago. She was given Xanax. 1. Pyelonephritis: Has been treated with rocephin IV. Leukocytosis essentially unchanged. Continue on IV fluids and antibiotic will be changed to levaquin. 2. Presumptive pneumonia super imposed on COPD. Begin Levaquin at 500 mg IV today, then 250 mg IV daily. CBC tomorrow, CXR tomorrow, Continue DuoNebs tid, IS Q hr WA. Review of CXR 04/10/16 showed hyperaerations consistent with COPD/ emphysema. 2) Mild increased interstitial marking. No focal infiltrate. 3. Nausea: Pt clearly relates this with anxiety. Will continue with Xanax 0.25 mg tid prn as well as zofran. 4. Status post cholecystetomy. 5. Status post Praful TKA 6. Past history of PE, DVT, 7. Past history of Hypertension: BP stable on no antihypertensives. 8. hypothyroidism: Continue levothyroxine, 9. GERD. GI coctail prn after checking with pt re: anxiety - Plan Plan:: .
[2017-04-14] MEDS ORDERED: Levofloxacin/Dextrose 5%-Water 500 MG in Premix Bag 1 BAG IV ONE (11:47)
[2017-04-14] MEDS: Ondansetron 4 MG/2 ML SDV IV PRN (13:32)
[2017-04-14] MEDS: Polyethylene Glycol 3350 Powder 17 GM Packet PO PRN (17:36)
[2017-04-15] MEDS: Albuterol/Ipratropium 3.0-0.5 MG/3 ML Neb Soln NEB SCH ×3 (05:30→20:35)
[2017-04-15] MEDS: Levothyroxine 100 MCG Tab PO SCH (07:37)
[2017-04-15] MEDS: Escitalopram 10 MG Tab PO SCH (09:54)
[2017-04-15] MEDS: Polyethylene Glycol 3350 Powder 17 GM Packet PO PRN (10:25)
[2017-04-15 11:47] LABS: O2 DELIVERY DEVICE NASAL CANNULA
[2017-04-15 11:48] LABS: BASE EXCESS ARTERIAL 5 mmol/L (-2-3); BICARBONATE,ARTERIAL 30.1 mmol/L (22-26); O2 FLOW RATE 1 L/min; O2 SATURATION ARTERIAL 91 % (95-98); PCO2 ARTERIAL 49 mmHG (35-45)
[2017-04-15 11:49] LABS: PO2 ARTERIAL 63 mmHG (80-105)
[2017-04-15] MEDS: Sodium Chloride 0.9% 5 ML Syringe FLUSH PRN ×2 (12:29→20:35)
[2017-04-15] MEDS: Levofloxacin/Dextrose 5%-Water 250 MG in Premix Bag 1 BAG IV SCH (12:29)
--- NOTE | 2017-04-15 13:31 | PCM.PN ---
- General Info Date of Service: 04/15/17 Admission Dx/Problem (Free Text): Brief history: 76 yo pt was admitted to the hospital through ER on 04/13 with complaints of severe vomiting. She had been seen in the ER earlier 04/12 with complaints of right flank and urinary tract urgency, nausea. This responded to PO fluids and she was discharged after IV Rocephin. Pt went home and immediately started vomiting. She was admitted to acute bed with possible UTI, severe nausea and vomiting with question of possible pyelonephritis. CT of abdomen showed fibrotic changes in lung bases with bronchial thickening noted and ground-glass opacities. Trace bilateral pleural effusions. "Infiltration of the peripancreatic fat around the head and uncinate process with mild thickening of the adjacent duodenum" Question early pancreatitis. Serum lipase was normal. 1. Pyelonephritis: She was treated for pyelonephritis with rocephin. Her WBC remained elevated. Antibotic was changed to levaquin yesterday and WBC has dropped to WNL. 2. COPD with superimposed pneumonia: She had wheezing on 04/13/17 with decreased O2 sats on room air. She was started on O2 at 2 liters, Incentive Spirometry q hr WA and DuoNebs tid. O2 has been dropped to 1l and O2 sats have remained 91-92%. 3. Anxiety: Pt continues to complain of nausea that is immediately resolved with Xanax. She has had no further emesis since yesterday morning. Pt reports whenever she feels anxious she gets nausea and vomits. This has been worsened since her 5 months ago. Pt had been on lexapro 20 mg prior to hospital admission. This was not restarted in the hospital. Functional Status: Reports: Pain Controlled - Review of Systems General: Reports: Fever (fever, does have fatigue) HEENT: Reports: No Symptoms Pulmonary: Reports: Other (denies any shortness of breath or coughing today. continues to need O2 to keep sats >90%) Cardiovascular: Reports: No Symptoms Gastrointestinal: Reports: Nausea (reports nausea with anxiety. resolves immediately with Xanax.) Genitourinary: Reports: No Symptoms Musculoskeletal: Reports: Other (reports CVA tenderness has resolved.) Skin: Reports: No Symptoms Neurological: Reports: No Symptoms Psychiatric: Reports: Depression, Anxiety - Patient Data Vitals - Most Recent: Last Vital Signs Temp 98.0 F 04/15/17 06:16 Pulse 91 04/15/17 06:16 Resp 18 04/15/17 06:16 BP 103/61 04/15/17 06:16 Pulse Ox 96 04/15/17 13:16 Weight - Most Recent: 178 lb 7 oz I&O - Last 24 Hours: Intake & Output 04/14/17 04/15/17 04/15/17 22:59 06:59 14:59 Intake Total 240 400 Output Total 600 1000 Balance -360 -600 Lab Results Last 24 Hours: Laboratory Results - last 24 hr 04/15/17 04/15/17 04/15/17 Range/Units 07:18 08:41 11:40 WBC 9.2 (5.0-10.0) 10^3/uL RBC 4.15 (3.80-5.50) 10^6/uL Hgb 12.0 (12.0-16.0) g/dL Hct 36.8 L (37.0-47.0) % MCV 88.8 (82.0-92.0) fL MCH 28.8 (27.0-31.0) pg MCHC 32.5 (32.0-36.0) g/dL RDW 12.8 (11.5-14.5) % Plt Count 220 (150-300) 10^3/uL MPV 8.2 (7.4-10.4) fL Neut % (Auto) 74.9 H (50.0-70.0) % Lymph % (Auto) 16.9 L (20.0-40.0) % [place] % (Auto) 7.1 (2.0-8.0) % Eos % (Auto) 0.8 L (1.0-3.0) % Baso % (Auto) 0.3 (0.0-1.0) % Neut # (Auto) 6.8 (2.5-7.0) 10^3/uL Lymph # (Auto) 1.6 (1.0-4.0) 10^3/uL [place] # (Auto) 0.7 (0.1-0.8) 10^3/uL Eos # (Auto) 0.1 (0.1-0.3) 10^3/uL Baso # (Auto) 0.0 (0.0-0.1) 10^3/uL ABG pH 7.39 (7.35-7.45) ABG pCO2 49 H (35-45) mmHG ABG pO2 63 L* (80-105) mmHG ABG HCO3 30.1 H (22-26) mmol/L ABG Total CO2 32 H (23-27) mmol/L ABG O2 Saturation 91 L (95-98) % ABG Base Excess 5 H (-2-3) mmol/L O2 Delivery Device Nasal cannula Oxygen Flow Rate 1 L/min B-Natriuretic Peptide 633 H (0-100) pg/mL Med Orders - Current: Current Medications Acetaminophen (Tylenol) 650 mg PO QID PRN PRN Reason: Pain Last Admin: 04/13/17 17:26 Dose: 650 mg Al Hydroxide/Mg Hydroxide (Gi Cocktail) 45 ml PO TID PRN PRN Reason: Nausea Last Admin: 04/14/17 09:45 Dose: 45 ml Albuterol/Ipratropium (Duoneb 3.0-0.5 Mg/3 Ml) 3 ml NEB Q8HRRT [facility] Last Admin: 04/15/17 13:13 Dose: 3 ml Alprazolam (Xanax) 0.25 mg PO Q6H PRN PRN Reason: Anxiety Last Admin: 04/14/17 21:25 Dose: 0.25 mg Escitalopram Oxalate (Lexapro) 20 mg PO DAILY [facility] Last Admin: 04/15/17 09:54 Dose: 20 mg Levofloxacin/Dextrose 250 mg/ (Premix) 50 mls @ 50 mls/hr IV Q24H [facility] Last Admin: 04/15/17 12:29 Dose: 50 mls/hr Ketorolac Tromethamine (Toradol) 15 mg IVPUSH Q8H PRN PRN Reason: Pain Stop: 04/18/17 10:43 Last Admin: 04/13/17 21:26 Dose: 15 mg Levothyroxine Sodium (Synthroid) 100 mcg PO ACBREAKFAST [facility] Last Admin: 04/15/17 07:37 Dose: 100 mcg Ondansetron HCl (Zofran) 4 mg IV Q6H PRN PRN Reason: Nausea/Vomiting Last Admin: 04/14/17 13:32 Dose: 4 mg Polyethylene Glycol (Miralax) 17 gm PO DAILY PRN PRN Reason: Constipation Last Admin: 04/15/17 10:25 Dose: 17 gm Sodium Chloride (Syrex Flush) 5 ml FLUSH Q8HR PRN PRN Reason: Keep Vein Open Last Admin: 04/15/17 12:29 Dose: 5 ml Sodium Chloride (Normal Saline) 50 ml FLUSH ASDIRECTED [facility] Last Admin: 04/13/17 07:49 Dose: 50 ml Discontinued Medications Al Hydroxide/Mg Hydroxide (Gi Cocktail) 45 ml PO TID [facility] Last Admin: 04/13/17 08:30 Dose: Not Given Ceftriaxone Sodium (Rocephin) 1 gm IVPUSH Q24H [facility] Last Admin: 04/13/17 20:03 Dose: 1 gm Sodium Chloride (Normal Saline) 1,000 mls @ 999 mls/hr IV .BOLUS ONE Stop: 04/13/17 00:34 Last Admin: 04/12/17 23:30 Dose: 999 mls/hr Sodium Chloride (Normal Saline) 1,000 mls @ 100 mls/hr IV ASDIRECTED [facility] Last Admin: 04/13/17 00:49 Dose: 100 mls/hr Ceftriaxone Sodium 1 gm/ (Sodium Chloride) 50 mls @ 200 mls/hr IV Q24H [facility] Last Admin: 04/13/17 10:44 Dose: Not Given Levofloxacin/Dextrose 500 mg/ (Premix) 100 mls @ 100 mls/hr IV ONETIME ONE Stop: 04/14/17 12:46 Last Admin: 04/14/17 12:48 Dose: 100 mls/hr Iopamidol (Isovue-300 (61%)) 75 ml IV ONETIME ONE Stop: 04/13/17 04:31 Last Admin: 04/13/17 07:48 Dose: 75 ml Ketorolac Tromethamine (Toradol) 30 mg IVPUSH ONETIME ONE Stop: 04/13/17 00:16 Last Admin: 04/13/17 00:21 Dose: 30 mg Ketorolac Tromethamine (Toradol) 30 mg IVPUSH Q8H PRN PRN Reason: Abdominal Pain Stop: 04/18/17 09:12 Metoclopramide HCl (Reglan) 10 mg IVPUSH ONETIME ONE Stop: 04/13/17 00:03 Last Admin: 04/13/17 00:06 Dose: 10 mg Metoclopramide HCl (Reglan) 10 mg IVPUSH ONETIME ONE Stop: 04/13/17 04:07 Last Admin: 04/13/17 04:22 Dose: 10 mg Ondansetron HCl (Zofran) 4 mg IVPUSH ONETIME ONE Stop: 04/12/17 23:35 Last Admin: 04/12/17 23:42 Dose: 4 mg Ondansetron HCl (Zofran) Confirm Administered Dose 4 mg .ROUTE .STK-MED ONE Stop: 04/12/17 23:37 Last Admin: 04/12/17 23:44 Dose: Not Given Pantoprazole Sodium (Protonix Iv) 40 mg IVPUSH ONETIME ONE Stop: 04/13/17 04:09 Last Admin: 04/13/17 04:22 Dose: 40 mg - Exam Quality Assessment: Supplemental Oxygen (1 liter per nc) General: Alert, Oriented, No Acute Distress Neck: Supple Lungs: Rales (rales in right base. diminished sounds throughout. No wheezing.) GI/Abdominal Exam: Soft, Non-Tender Back Exam: Other (No CVA tenderness today) Extremities: Other (trace pedal edema praful.) Skin: Warm, Dry, Intact Neurological: No New Focal Deficit Psy/Mental Status: Alert, Other (subdued affect. Anxious with conversation re: use of Xanax and restarting lexapro in an attempt to decrease Xanax need.) - Problem List Review Problem List Initiated/Reviewed/Updated: Yes - My Orders Last 24 Hours: My Active Orders 04/14/17 16:38 Polyethylene Glycol 3350 [MiraLAX] 17 gm PO DAILY PRN 04/15/17 05:00 CXR [Chest 2V] [CR] Routine 04/15/17 09:35 Daily Weight [Height and Weight] [RC] 0700 04/15/17 09:45 Escitalopram [Lexapro] 20 mg PO DAILY 04/15/17 12:00 Levofloxacin/Dextrose 5%-Water [Levaquin in D5W 250 MG/50 ML] 250 mg Premix Bag 1 bag IV Q24H - Assessment Assessment:: Brief history: 76 yo pt was admitted to the hospital through ER on 04/13 with complaints of severe vomiting. She had been seen in the ER earlier 04/12 with complaints of right flank and urinary urgency, nausea. This responded to PO fluids and she was discharged after IV Rocephin. Pt went home and immediately started vomiting. She was admitted to acute bed with possible UTI, severe nausea and vomiting with question of possible pyelonephritis. CT of abdomen showed fibrotic changes in lung bases with bronchial thickening noted and ground-glass opacities. Trace bilateral pleural effusions. "Infiltration of the peripancreatic fat around the head and uncinate process with mild thickening of the adjacent duodenum" Question early pancreatitis. Serum lipase was normal. Pt has CXR 04/10/16 showing hyperaeration consistent with COPD/emphysema. Pt was not aware of any COPD history. She had wheezing on admission with decreased O2 sats on room air was started on O2 at 2 liters, Incentive Spirometry q hr WA and DuoNebs tid. O2 sats are at 91 -92% on O2 on 1 liter O2 today. Pt continues with nausea resolved immediately with Xanax. 1. Pyelonephritis: Improved. No further CVA tenderness after antibiotic changed to Levaquin. WBC WNL today. Continue on IV levaquin. 2. 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 Continue Levaquin 250 mg IV daily. CBC has improved. CXR showing Mild CHF with interstitial edmea and a small right effusion. This could obscure early infiltrates, but no infiltrates are identified on this CXR. BNP was mildly elevated at 633. Will give lasix 40 mg x 1 today. ABGs were obtained due to ongoing low O2 sats. ABGs showing low PO2 with elevated PCO2 and HCO3 showing compensation of COPD. Continue DuoNebs tid, IS qid 3. Nausea: Pt clearly relates this with anxiety. Will resume lexapro 20 mg daily and continue with Xanax 0.25 mg tid prn. 4. Status post cholecystetomy. 5. Status post Praful TKA 6. Past history of PE, DVT, 7. Past history of Hypertension: BP stable on no antihypertensives. 8. Hypothyroidism: Continue levothyroxine, 9. GERD. GI cocktail prn after checking with pt re: anxiety - Plan Plan:: .
[2017-04-15] MEDS ORDERED: Furosemide 40 MG/4 ML VIAL IVPUSH ONE (13:45)
[2017-04-15] MEDS: ALPRAZolam 0.25 MG Tab PO PRN (20:49)
[2017-04-16] MEDS: Albuterol/Ipratropium 3.0-0.5 MG/3 ML Neb Soln NEB SCH ×3 (06:00→20:31)
[2017-04-16] MEDS: Polyethylene Glycol 3350 Powder 17 GM Packet PO SCH (08:38)
[2017-04-16] MEDS: Escitalopram 10 MG Tab PO SCH (08:38)
[2017-04-16] MEDS: Levothyroxine 100 MCG Tab PO SCH (08:38)
[2017-04-16] MEDS: Pantoprazole 40 MG Tab.CR PO SCH (10:39)
[2017-04-16] MEDS: Levofloxacin/Dextrose 5%-Water 250 MG in Premix Bag 1 BAG IV SCH (12:11)
[2017-04-16] MEDS: Sodium Chloride 0.9% 5 ML Syringe FLUSH PRN (12:12)
--- NOTE | 2017-04-16 12:13 | PCM.PN ---
- General Info Date of Service: 04/16/17 Admission Dx/Problem (Free Text): Pyelonephritis Subjective Update: Ms. Portillo reports feeling much better this morning. She has had interval improvement in her breathing and resolution of nausea and flank pain. She ate breakfast this morning without difficulty, but does admit to some heartburn following lunch yesterday for which she usually takes pantoprazole at home. Has been ambulating with her walker without difficulty. No new concerns have arisen. She denies any fever, chills, chest pain, palpitations, shortness of breath, productive cough, nausea, diarrhea, abdominal pain, flank pain, dysuria, hematuria, edema. Nursing reports no concerns. - Patient Data Vitals - Most Recent: Last Vital Signs Temp 36.3 C 04/16/17 06:43 Pulse 83 04/16/17 06:43 Resp 20 04/16/17 06:43 BP 127/82 04/16/17 06:43 Pulse Ox 94 L 04/16/17 09:30 Weight - Most Recent: 79.469 kg I&O - Last 24 Hours: Intake & Output 04/15/17 04/16/17 04/16/17 22:59 06:59 14:59 Intake Total 820 300 Output Total 2600 1000 Balance -1780 -700 Med Orders - Current: Current Medications Acetaminophen (Tylenol) 650 mg PO QID PRN PRN Reason: Pain Last Admin: 04/13/17 17:26 Dose: 650 mg Al Hydroxide/Mg Hydroxide (Gi Cocktail) 45 ml PO TID PRN PRN Reason: Nausea Last Admin: 04/14/17 09:45 Dose: 45 ml Albuterol/Ipratropium (Duoneb 3.0-0.5 Mg/3 Ml) 3 ml NEB Q8HRRT [facility] Last Admin: 04/16/17 06:00 Dose: 3 ml Alprazolam (Xanax) 0.25 mg PO Q6H PRN PRN Reason: Anxiety Last Admin: 04/15/17 20:49 Dose: 0.25 mg Aspirin (Aspirin) 81 mg PO WITHBREAKFAST [facility] Escitalopram Oxalate (Lexapro) 20 mg PO DAILY [facility] Last Admin: 04/16/17 08:38 Dose: 20 mg Levofloxacin/Dextrose 250 mg/ (Premix) 50 mls @ 50 mls/hr IV Q24H [facility] Last Admin: 04/15/17 12:29 Dose: 50 mls/hr Ketorolac Tromethamine (Toradol) 15 mg IVPUSH Q8H PRN PRN Reason: Pain Stop: 04/18/17 10:43 Last Admin: 04/13/17 21:26 Dose: 15 mg Levothyroxine Sodium (Synthroid) 100 mcg PO ACBREAKFAST [facility] Last Admin: 04/16/17 08:38 Dose: 100 mcg Lisinopril (Prinivil) 10 mg PO DAILY [facility] Ondansetron HCl (Zofran) 4 mg IV Q6H PRN PRN Reason: Nausea/Vomiting Last Admin: 04/14/17 13:32 Dose: 4 mg Pantoprazole Sodium (Protonix) 40 mg PO ACBREAKFAST [facility] Last Admin: 04/16/17 10:39 Dose: 40 mg Polyethylene Glycol (Miralax) 17 gm PO DAILY [facility] Last Admin: 04/16/17 08:38 Dose: Not Given Sodium Chloride (Syrex Flush) 5 ml FLUSH Q8HR PRN PRN Reason: Keep Vein Open Last Admin: 04/15/17 20:35 Dose: 5 ml Discontinued Medications Al Hydroxide/Mg Hydroxide (Gi Cocktail) 45 ml PO TID [facility] Last Admin: 04/13/17 08:30 Dose: Not Given Ceftriaxone Sodium (Rocephin) 1 gm IVPUSH Q24H [facility] Last Admin: 04/13/17 20:03 Dose: 1 gm Furosemide (Lasix) 40 mg IVPUSH NOW ONE Stop: 04/15/17 13:46 Last Admin: 04/15/17 14:38 Dose: 40 mg Sodium Chloride (Normal Saline) 1,000 mls @ 999 mls/hr IV .BOLUS ONE Stop: 04/13/17 00:34 Last Admin: 04/12/17 23:30 Dose: 999 mls/hr Sodium Chloride (Normal Saline) 1,000 mls @ 100 mls/hr IV ASDIRECTED [facility] Last Admin: 04/13/17 00:49 Dose: 100 mls/hr Ceftriaxone Sodium 1 gm/ (Sodium Chloride) 50 mls @ 200 mls/hr IV Q24H [facility] Last Admin: 04/13/17 10:44 Dose: Not Given Levofloxacin/Dextrose 500 mg/ (Premix) 100 mls @ 100 mls/hr IV ONETIME ONE Stop: 04/14/17 12:46 Last Admin: 04/14/17 12:48 Dose: 100 mls/hr Iopamidol (Isovue-300 (61%)) 75 ml IV ONETIME ONE Stop: 04/13/17 04:31 Last Admin: 04/13/17 07:48 Dose: 75 ml Ketorolac Tromethamine (Toradol) 30 mg IVPUSH ONETIME ONE Stop: 04/13/17 00:16 Last Admin: 04/13/17 00:21 Dose: 30 mg Ketorolac Tromethamine (Toradol) 30 mg IVPUSH Q8H PRN PRN Reason: Abdominal Pain Stop: 04/18/17 09:12 Metoclopramide HCl (Reglan) 10 mg IVPUSH ONETIME ONE Stop: 04/13/17 00:03 Last Admin: 04/13/17 00:06 Dose: 10 mg Metoclopramide HCl (Reglan) 10 mg IVPUSH ONETIME ONE Stop: 04/13/17 04:07 Last Admin: 04/13/17 04:22 Dose: 10 mg Ondansetron HCl (Zofran) 4 mg IVPUSH ONETIME ONE Stop: 04/12/17 23:35 Last Admin: 04/12/17 23:42 Dose: 4 mg Ondansetron HCl (Zofran) Confirm Administered Dose 4 mg .ROUTE .STK-MED ONE Stop: 04/12/17 23:37 Last Admin: 04/12/17 23:44 Dose: Not Given Pantoprazole Sodium (Protonix Iv) 40 mg IVPUSH ONETIME ONE Stop: 04/13/17 04:09 Last Admin: 04/13/17 04:22 Dose: 40 mg Polyethylene Glycol (Miralax) 17 gm PO DAILY PRN PRN Reason: Constipation Last Admin: 04/15/17 10:25 Dose: 17 gm Sodium Chloride (Normal Saline) 50 ml FLUSH ASDIRECTED [facility] Last Admin: 04/13/17 07:49 Dose: 50 ml - Exam Physical Findings Comments:: GENERAL: Well-appearing elderly white female sitting in bedside chair in no acute distress. HEENT: Normocephalic, atraumatic. Conjunctiva clear. Mucous membranes moist, posterior pharynx unremarkable. NECK: Supple, no masses. CV: Regular rate and rhythm, no murmurs, rubs, or gallops. 2+ radial pulses. PULMONARY: Normal effort, clear to auscultation bilaterally, no wheezes, rales, or rhonchi. ABDOMEN: Positive bowel sounds, soft, nontender, no CVA tenderness. EXTREMITIES: No edema, cyanosis, or clubbing. MUSCULOSKELETAL: Moves all extremities well. NEUROLOGICAL: No obvious deficits. DERMATOLOGIC: No rashes or suspicious lesions in exposed areas. PSYCHIATRIC: Alert, interactive, appropriate affect. - Problem List Review Problem List Initiated/Reviewed/Updated: Yes - My Orders Last 24 Hours: My Active Orders 04/16/17 10:15 Pantoprazole [ProTONIX] 40 mg PO ACBREAKFAST 04/17/17 05:11 BASIC METABOLIC PANEL,BMP [CHEM] AM TSH ULTRASENSITIVE [CHEM] AM 04/17/17 08:00 Aspirin 81 mg PO WITHBREAKFAST 04/17/17 09:00 Lisinopril [Prinivil] 10 mg PO DAILY - Assessment Assessment:: 76yoF with history notable for HTN and anxiety admitted to the hospital through ED on 04/13/17 with complaints of severe vomiting thought to be secondary to pyelonephritis. She had been seen in the ED on 04/12/17 with complaints of urinary urgency, right flank pain, and nausea which responsed to po fluids and she was discharged following IV ceftriaxone. She went home and immediately started vomiting. She returned to the ED and CT abdomen/pelvis showed fibrotic changes in lung bases with bronchial thickening noted and ground-glass opacities , trace bilateral pleural effusions, and infiltration of the peripancreatic fat around the head and uncinate process with mild thickening of the adjacent duodenum. She was admitted for inpatient management. # Pyelonephritis: Urinary symptoms and right CVA tenderness resolved and WBC normalized since switching ceftriaxone to levofloxacin. Urine culture from this admission after initiation of antibiotics (ceftriaxone IV x1 and cephalexin x2 doses) the day prior with growth consistent with contamination. Given clinical improvement despite no growth on urine culture, recommend continuing fluoroquinolone for remainder of 10-14 day course. # Acute hypoxic respiratory failure: Requiring as much as 2L via nasal cannula. Wheezing noted on admission and prior CXR with evidence of possible COPD, though patient denies pulmonary history, and ABG consistent with compensated respiratory acidosis. CXR this admission with evidence of fluid overload, BNP mildly elevated, and resolution of hypoxia and shortness of breath following diuresis of just under 2L with furosemide 40mg given 04/15/17. No prior dx of heart failure or other findings to suggest underlying etiology. Remainder of laboratory work-up negative; last TSH wnl 6mos ago, so will check again tomorrow along with BMP to recheck electrolytes and renal function. Recommend outpatient echo and consideration of spirometry. No evidence of fluid overload on exam today and hypoxia resolved, so will hold off on further diuretics. Continue DuoNebs prn. # Generalized anxiety disorder: Recent worsening since 's 5mos ago. Associated with occasional nausea that responds to alprazolam, which will be continued on a strictly as needed basis in addition to escitalopram. Chronic conditions: # HTN: Well-controlled without medications. Continue holding outpatient lisinopril. # GERD: Complained of some heartburn yesterday after lunch. Restart outpatient pantoprazole. # Hypothyoridism: Last TSH wnl 6mos ago. Recheck as above. Continue levothyroxine. # HLD: Restart atorvastatin and ASA. Hospitalization details: # FEN: No IVF. Electrolytes normal on last check; recheck tomorrow. Regular diet. # PPX: Given plan to discharge tomorrow, will continue with frequent ambulation for DVT ppx. # Code status: Full code. # Disposition: Continue on inpatient unit. Plan to discharge to home tomorrow pending ongoing clinical improvement.
[2017-04-16] MEDS: GI Cocktail 45 ML BOTTLE PO PRN (14:38)
[2017-04-16] MEDS: ALPRAZolam 0.25 MG Tab PO PRN (21:59)
[2017-04-17] MEDS: Albuterol/Ipratropium 3.0-0.5 MG/3 ML Neb Soln NEB SCH (05:45)
[2017-04-17 06:23] VITALS: BP 98/59
[2017-04-17] MEDS: Pantoprazole 40 MG Tab.CR PO SCH (07:42)
[2017-04-17] MEDS: Levothyroxine 100 MCG Tab PO SCH (07:42)
[2017-04-17] MEDS ORDERED: Aspirin 81 MG Tab.Chew PO SCH (08:00)
[2017-04-17] MEDS: Polyethylene Glycol 3350 Powder 17 GM Packet PO SCH (08:24)
[2017-04-17] MEDS: Escitalopram 10 MG Tab PO SCH (08:24)
[2017-04-17] MEDS ORDERED: Lisinopril 10 MG Tab PO SCH (09:00)
--- NOTE | 2017-04-18 08:35 | DISCH ---
FINAL DIAGNOSES: 1. Pyelonephritis, resolving. Continue with Levaquin. 2. Clinical signs of heart failure, low-dose diuretic on discharge. 3. Rule out chronic obstructive pulmonary disease, may need PFTs, outpatient. 4. Generalized anxiety, seems to be improved, recent of . 5. Gastroesophageal reflux disease, worsening, adjusted and reduced caffeine, brought back on PPI. 6. Diverticulosis. 7. Trace bilateral pleural effusions. 8. Possible pancreatitis. 9. Hypothyroidism. HISTORY: This 76-year-old very pleasant female was admitted in acute care four days ago. She came through ambulance department mainly due to severe vomiting. She was treated and released. Appeared to have a urinary tract infection as she did have some right flank pain and some symptoms of UTI; however, she had returned for some vomiting, so she was admitted to acute care. HOSPITAL COURSE: Hospital course went fairly well. She never became hemodynamically unstable, although she did have an ABG which showed some mild acidotic picture, however, it was compensatory as the pH was 7.39, CO2 was high at 49 with a low O2 at 63. This was on 1 L of oxygen. She was started on DuoNeb, aggressive pulmonary toileting with the incentive spirometer, and given some Lasix diuretic therapy which did improve. She did have 6-pound weight loss on diuretic therapy. She states she does not have a history of heart failure or COPD as she is aware of. She was treated with pyelonephritis with Levaquin IV. She will continue with oral outpatient. She had a white count of 15.8 on admission. Neutrophils percentages were about 90, they were shifting right on discharge. Normal white count on discharge. Neutrophils shifting down to 74%. She had no CVA tenderness. No nausea, vomiting, or diarrhea. She was tolerating an appetite. She was afebrile. On discharge, heart rate was in the 90s. TSH level was drawn, it was 0.1. Adjustments on home medications were made. Levothyroxine reduced to 88 mcg. DIAGNOSTICS: Abdominal CT on admission showed probable early pancreatitis, however, lipase was normal. It showed edema involving the head and uncinate process of the pancreas. Also, she had moderate proximal small-bowel distention. Surgical removal of gallbladder was noted. Liver, spleen, kidneys, and adrenals were normal along with no mass or adenopathy in her pelvic. Chest x-ray showed mild CHF with interstitial edema with small right pleural effusion, however, no focal infiltrates. Electrolytes on discharge, sodium 140, potassium 4.3, BUN 13, creatinine 1.08, glucose 117. BNP 633. TSH 0.110, which is low. PHYSICAL EXAM ON DISCHARGE: VITAL SIGNS: Systolic blood pressure around 100, temperature 98.8, heart rate 94, O2 sats 92%, respiratory rate 18. LUNGS: Clear on auscultation. EXTREMITIES: She had very little if any edema of lower extremities. BACK: Negative CVA tenderness. MICROBIOLOGY REPORT: Urine cultures suggestive of contamination. DISCHARGE MEDICATIONS: 1. Levothyroxine 88 mcg p.o. daily (decreased from 100). 2. Lasix 10 mg p.o. daily x2 weeks (newly added). 3. DuoNeb every 8 hours as needed (newly added). 4. Levaquin 250 mg p.o. daily times 8 days (newly added). 5. The patient to restart her PPI therapy. DISPOSITION: The patient will be discharged from the hospital, self-snf, IV will be discontinued. She will follow up with me in [facility] in 3 days. FOLLOW-UP RECOMMENDATIONS: Echocardiogram, pulmonary function test, bringing her incentive spirometer. Repeat TSH level 60 days. Weight on discharge 171 pounds, 4 ounces. She is to report any vomiting, lower urinary tract infection symptoms, any worsening shortness of breath. MEDICAL DECISION MAKIN minutes was spent on this discharge planning and process. /[id number]/MODL
== END 2017-04-17 10:10 | disposition home or self-care (01) | DRG 689 ==
LOC: KA.ED 23:12 → KA.MS 04-13 00:07
PROVIDERS: ADMIT Physician Assistant Medical; ATTEND Family Medicine
DX: N12 Tubulo-interstitial nephritis, not specified as acute or chronic (principal); J96.01 Acute respiratory failure with hypoxia; N39.0 Urinary tract infection, site not specified; J18.9 Pneumonia, unspecified organism; J44.0 Chronic obstructive pulmonary disease with (acute) lower respiratory infection; R11.2 Nausea with vomiting, unspecified; E78.5 Hyperlipidemia, unspecified; I10 Essential (primary) hypertension; E03.9 Hypothyroidism, unspecified; K21.9 Gastro-esophageal reflux disease without esophagitis; F41.9 Anxiety disorder, unspecified; Z79.899 Other long term (current) drug therapy; Z86.718 Personal history of other venous thrombosis and embolism; Z86.711 Personal history of pulmonary embolism
CPT/HCPCS: 80053; 83690; 85025; 96374; 96375; 99285 ×2; J2405; J2765; J7030; 36415; 36600; 71020; 74177; 80048; 81001; 82803; 82962; 83880; 84443; 87086; 94640; 96372; 99284; A9270-GY; C9113; J0696; J1885; J1940; J1956; Q9967

== ENCOUNTER 2022-06-23 19:57 | Emergency (ER) | payer MEDICARE, OTHER ==
[2022-06-23 20:13] VITALS: BP 150/84; PULSE 97
[2022-06-23] MEDS: Ketorolac 30 MG/ML SDV IM ONE (20:37)
== END 2022-06-23 21:30 | disposition home or self-care (01) ==
LOC: KA.ED 19:57 → MERGE 19:57 → KA.ED 21:30
DX: S22.41XA Multiple fractures of ribs, right side, initial encounter for closed fracture (principal); W01.0XXA Fall on same level from slipping, tripping and stumbling without subsequent striking against object, initial encounter; Y92.009 Unspecified place in unspecified non-institutional (private) residence as the place of occurrence of the external cause
CPT/HCPCS: 71111-RT; 96372; 99283; J1885

== ENCOUNTER 2024-03-24 10:05 | Emergency (ER) | payer MEDICARE, OTHER ==
[2024-03-24] MEDS: Sodium Chloride 0.9% 10 ML Syringe FLUSH PRN (10:40)
[2024-03-24 10:43] LABS: EOSINOPHILS ABSOLUTE AUTO 0.01 10^3/uL (0.10-0.30); EOSINOPHILS PERCENT AUTO 0.1 % (1.0-3.0); HEMATOCRIT 39.5 % (37.0-47.0); HEMOGLOBIN 12.8 g/dL (12.0-16.0); IMMATURE GRAN ABSOLUTE AUTO 0.03 10^3/uL (0.00-0.50); IMMATURE GRAN PERCENT AUTO 0.2 % (0.0-5.0); LYMPHOCYTES ABSOLUTE AUTO 3.18 10^3/uL (1.00-4.00); MEAN CORPUSCULAR HEMOGLOBIN 29.2 pg (27.0-31.0); MEAN CORPUSCULAR HGB CONC 32.4 g/dL (32.0-36.0); MEAN PLATELET VOLUME 9.6 fL (7.4-10.4); MONOCYTES ABSOLUTE AUTO 1.66 10^3/uL (0.10-0.80); NEUTROPHILS ABSOLUTE AUTO 8.96 10^3/uL (2.50-7.00); NEUTROPHILS PERCENT AUTO 64.7 % (50.0-70.0); PLATELET COUNT,PLT 316 10^3/uL (150-400); RED BLOOD CELL COUNT 4.39 10^6/uL (3.80-5.50); RED CELL DISTRIBUTION WIDTH 13.3 % (11.5-14.5); WHITE BLOOD CELL COUNT,WBC 13.84 10^3/uL (5.00-10.00)
[2024-03-24] MEDS: Albuterol 0.083% 2.5 MG/3 ML Neb Soln NEB ONE (10:51)
[2024-03-24 10:53] VITALS: BP 146/80; PULSE 105
[2024-03-24 11:05] LABS: ANION GAP 12.9 mmol/L (5-15); CALCIUM 8.9 mg/dL (8.7-10.3); CARBON DIOXIDE,CO2 26.8 mmol/L (21.0-32.0); CREATININE 0.94 mg/dL (0.51-1.17); EST CRCL DRUG DOSING (CG) 35.24 mL/min; POTASSIUM,K 3.7 mmol/L (3.5-5.1)
[2024-03-24] MEDS ORDERED: Sodium Chloride 0.9% 50 ML IV SCH (11:45)
[2024-03-24] MEDS: Iopamidol 755 Mg/ML 100 ML Bottle IV ONE (12:05)
[2024-03-24] MEDS: Sodium Chloride 0.9% 100 ML IV SCH (12:06)
== END 2024-03-24 14:10 | disposition home or self-care (01) ==
LOC: KA.ED 10:05
DX: J06.9 Acute upper respiratory infection, unspecified (principal); J45.20 Mild intermittent asthma, uncomplicated; R79.1 Abnormal coagulation profile; D72.828 Other elevated white blood cell count; E78.00 Pure hypercholesterolemia, unspecified; I10 Essential (primary) hypertension; K21.9 Gastro-esophageal reflux disease without esophagitis; M19.90 Unspecified osteoarthritis, unspecified site; E03.9 Hypothyroidism, unspecified; E66.9 Obesity, unspecified; Z79.82 Long term (current) use of aspirin; Z79.899 Other long term (current) drug therapy
CPT/HCPCS: 36415; 71045; 71275; 80048; 83605; 84484; 85025; 85379; 94640; 99285; J3490; Q9967; 93010; 99284; J7613-GY

== ENCOUNTER 2024-05-09 21:20 | Emergency (ER) | payer MEDICARE, OTHER ==
[2024-05-09] MEDS ORDERED: methylPREDNISolone Sodium Succinate 40 MG/1 ML SDV ONE (21:55)
[2024-05-09] MEDS: methylPREDNISolone Acetate 80 MG/ML SDV IM ONE (22:02)
[2024-05-09] MEDS: Bupivacaine 0.5% 10 ML SDV INJECT ONE (22:02)
[2024-05-09 22:19] VITALS: BP 137/77; PULSE 89
== END 2024-05-09 22:25 | disposition home or self-care (01) ==
LOC: KA.ED 21:20
DX: M70.61 Trochanteric bursitis, right hip (principal); L30.9 Dermatitis, unspecified; I10 Essential (primary) hypertension; J45.909 Unspecified asthma, uncomplicated; K21.9 Gastro-esophageal reflux disease without esophagitis; M19.90 Unspecified osteoarthritis, unspecified site; E78.00 Pure hypercholesterolemia, unspecified; E66.9 Obesity, unspecified; E03.9 Hypothyroidism, unspecified; Z79.82 Long term (current) use of aspirin; Z79.890 Hormone replacement therapy; Z79.899 Other long term (current) drug therapy; Z90.49 Acquired absence of other specified parts of digestive tract; Z68.31 Body mass index [BMI] 31.0-31.9, adult
CPT/HCPCS: 20610; 96372; 99283-25; 99284; J0665; J1010